=== PATIENT | male | born 1945 | race Caucasian/White ===

== ENCOUNTER 2016-10-06 08:08 | Day surgery (SDC) | payer OTHER ==
--- NOTE | ~2016-10-06 | EGD ---
EGD REPORT [facility] [address] [place] [id number] NAME: GIGI TALAVERA III : 41 [place]US : [place] [facility] [place] [id number] AGE: 70 ADM/REG DATE : 10/06/16 MR#: [id number] REPORT SERV DATE: 10/06/16 DICTATED BY: PANFILO TREJO DATE: 10/06/16 REPORT STATUS : Draft TRANSCRIBED BY: [employer] DATE: 10/06/16 [facility] Patient Name: Gigi Talavera Iii Date of : 1945 Attending MD: PANFILO TREJO MD Procedure Date No Time: 10/06/2016 Procedure: Colonoscopy Indications: High risk colon cancer surveillance: Personal history of colonic polyps Referring MD: LAURA SANTIAGO Medicines: as per anesthesia Complications: No immediate complications. Procedure: Pre-Anesthesia Assessment: - ASA Grade Assessment: II - A patient with mild systemic disease. After I obtained informed consent, the scope was passed under direct vision. Throughout the procedure, the patient's blood pressure, pulse, and oxygen saturations were monitored continuously. The PCF [id number] was introduced through the anus and advanced to the cecum, identified by appendiceal orifice and ileocecal valve. The colonoscopy was performed without difficulty. The patient tolerated the procedure. The quality of the bowel preparation was adequate to identify polyps. Findings: The perianal and digital rectal examinations were normal. A sessile polyp was found in the cecum. The polyp was 3 mm in size. The polyp was removed with a cold biopsy forceps. Resection and retrieval were complete. Many small and large-mouthed diverticula were found in the sigmoid colon and in the descending colon. Internal hemorrhoids were found during endoscopy and were moderate. Impression: - One 3 mm polyp in the cecum. Resected and retrieved. - Diverticulosis in the sigmoid colon and in the descending colon. - Internal hemorrhoids. Recommendation: - Await pathology results. - Repeat colonoscopy for surveillance based on pathology results. Procedure Code(s): --- Professional --- 08421, Colonoscopy, flexible, proximal to splenic EGD REPORT [facility] [address] [place] [id number] NAME: GIGI TALAVERA III : 41 STATUS : REG [facility]#: [id number] AGE: 70 ADM/REG DATE : 10/06/16 MR#: [id number] REPORT SERV DATE: 10/06/16 DICTATED BY: PANFILO TREJO. DATE: 10/06/16 REPORT STATUS : Draft TRANSCRIBED BY: August DATE: 10/06/16 flexure; with biopsy, single or multiple Diagnosis Code(s): --- Professional --- D12.0, Benign neoplasm of cecum K64.8, Other hemorrhoids K57.30, Diverticulosis of large intestine without perforation or abscess without bleeding Z86.010, Personal history of colonic polyps CPT copyright 2013 [employer]. All rights reserved. The codes documented in this report are preliminary and upon marble rubber review may be revised to meet current compliance requirements. PANFILO TREJO MD 10/06/2016 9:11 AM This report has been signed electronically. Number of Addenda: 0 Note Initiated On: 10/06/2016 8:29 AM Scope Withdrawal Time 0 hours 9 minutes 9 seconds [address] [id number]
[~2016-10-06 08:08] MED LIST: ALLEGRA180 PO; AMBIEN CR12.5 MG PO; LEVOTHYROXIN50 MCG PO; LORTAB 5 PO; MICROZIDE PO; MOBIC15 MG PO; MULTIVITAMI1 PO; PRIN10 PO; SAW PALMETT2 PO; ZOCOR20 PO
== END 2016-10-06 23:59 | disposition home or self-care (01) ==
LOC: DMU 08:08
PROVIDERS: Internal Medicine Gastroenterology
PROC: 0DBH8ZZ Excision of Cecum, Via Natural or Artificial Opening Endoscopic (ICD-10-PCS; principal; 2016-10-06 08:30)
DX: Z12.11 Encounter for screening for malignant neoplasm of colon (principal); D12.0 Benign neoplasm of cecum; K64.8 Other hemorrhoids; G25.81 Restless legs syndrome; I10 Essential (primary) hypertension; K57.30 Diverticulosis of large intestine without perforation or abscess without bleeding; E78.00 Pure hypercholesterolemia, unspecified; E03.9 Hypothyroidism, unspecified; Z86.010 Personal history of colon polyps; Z98.890 Other specified postprocedural states; Z79.899 Other long term (current) drug therapy
CPT/HCPCS: 88305; J2370